=== PATIENT | male | born 1945 | race Caucasian/White ===

== ENCOUNTER 2017-08-31 09:30 | Emergency (ER) | payer OTHER ==
[~2017-08-31] VITALS: Ht 165.1 cm; Wt 88.2 kg
[2017-08-31 09:55] LABS: HEMATOCRIT 38.2 % (38.0-50.0); HEMOGLOBIN 12.8 G/DL (12.5-16.6); MCH 31.3 PG (29.0-34.0); MCHC 33.5 G/DL (30.0-36.0); MCV 93.4 FL (86-99); PLATELET COUNT 283 K/uL (156-360); RBC DIS.WIDTH-CV 12.9 % (11.8-14.6); RBC DIS.WIDTH-SD 44.5 % (39-53); RED BLOOD COUNT 4.09 M/uL (4.00-5.50); WHITE BLOOD COUNT 9.5 K/uL (4.1-10.2)
[2017-08-31 10:03] LABS: CHLORIDE 103 mEq/L (99-109); POTASSIUM 5.4 mEq/L (3.7-5.4); SODIUM 139 mEq/L (136-147)
[2017-08-31 10:05] LABS: GLUCOSE 273 mg/dL (70-99)
[2017-08-31 10:09] LABS: CREATININE 1.2 mg/dL (0.6-1.3); GFR ESTIMATE (CALCULATED) > 59 mL/min/ (58.99-99999)
[2017-08-31 10:10] LABS: UREA NITROGEN (BUN) 11 mg/dL (9-23)
[2017-08-31 10:19] LABS: APPEARANCE CLEAR ((CLEAR)); BILIRUBIN NEGATIVE; BLOOD NEGATIVE; COLOR YELLOW ((YELLOW)); GLUCOSE (STRIP) 150; KETONES NEGATIVE; LEUKOCYTES NEGATIVE; NITRITE NEGATIVE; PROTEIN (STRIP) NEGATIVE; SPECIFIC GRAVITY 1.018 (1.000-1.030); UCUL ADDED? NO
[2017-08-31] MEDS ORDERED: LIDODERM 5% P1 PATCH TD (11:03)
[2017-08-31 11:22] VITALS: BP 132/66
== END 2017-08-31 11:24 | disposition home or self-care (01) ==
LOC: EME 09:30
PROC: 3E023BZ Introduction of Anesthetic Agent into Muscle, Percutaneous Approach (ICD-10-PCS; principal; 2017-08-31)
DX: M54.5 Low back pain (principal); M62.830 Muscle spasm of back; Z95.1 Presence of aortocoronary bypass graft; Z95.5 Presence of coronary angioplasty implant and graft
CPT/HCPCS: 80048; 81003; 85027; 99281; 99284